=== PATIENT | male | born 1965 | race Caucasian/White ===

== ENCOUNTER 2021-10-19 16:32 | Emergency (ER) | payer SELFPAY ==
[~2021-10-19] VITALS: Ht 177.8 cm; Wt 66.7 kg
[2021-10-19 16:40] VITALS: BP 116/77
[2021-10-19] MEDS ORDERED: LIDOCAINE (700MG/PATCH) PATCH. TD ONE (19:00)
[2021-10-19] MEDS ORDERED: KETOROLAC 60 MG/2 ML VIAL. IM ONE (19:00)
[2021-10-19] MEDS ORDERED: ORPHENADRINE CITRATE 60 MG/2 ML VIAL. IM ONE (19:00)
[2021-10-19] MEDS ORDERED: ORPH100T PO (20:05)
--- NOTE | 2021-10-19 20:07 | PHYS DOC ---
Past Medical History Past Medical History: Sciatica Additional Past Medical Histor: back pain Past Surgical History: No Surgical History Smoking Status: Current Every Day Smoker Alcohol Use: Occasionally General Adult EDM: Chief Complaint: BACK PAIN - NO INJURY HPI: HPI: Patient is a 55 year old male who presents with left-sided low back pain. Patient reports history of sciatica and states that his current episode has lasted approximately 2 weeks. He denies bowel or bladder incontinence, new injury or trauma, saddle anesthesia. Review of Systems: Review of Systems: ROS negative or noncontributory except as mentioned in HPI. Heart Score: C/O Chest Pain: No Current Medications: Current Medications Medications (Trade) Dose Ordered Sig/Ti Start Time Stop Time Status Last Admin Dose Admin Ketorolac Tromethamine (Toradol Im) 60 mg 1X ONCE 10/19/21 19:00 10/19/21 19:01 DC 10/19/21 19:04 60 MG Lidocaine (Lidoderm) 1 patch 1X ONCE 10/19/21 19:00 10/19/21 19:01 DC 10/19/21 19:05 1 PATCH Orphenadrine Citrate (Norflex) 60 mg 1X ONCE 10/19/21 19:00 10/19/21 19:01 DC 10/19/21 19:04 60 MG Allergies: Allergies: Allergies Coded Allergies Type Severity Reaction Last Updated Verified codeine Allergy Intermediate 10/19/21 Yes Physical Exam: PE: Constitutional: Well developed, well nourished, no acute distress, non-toxic appearance. HENT: Normocephalic, atraumatic, bilateral external ears normal, nose normal. Eyes: EOMI, conjunctiva normal, no discharge. Neck: Normal range of motion, no stridor. Skin: Warm, dry, no erythema, no rash. Back: No step-off, left-sided paraspinal muscle spasm with overlying tenderness Extremities: No tenderness, no cyanosis, no clubbing, ROM intact, no edema. Neurologic: Alert and oriented x4, no focal deficits noted, b/l great toe dorsiflexion 5/5 strength, steady gait. Current Patient Data: Vital Signs: Vital Signs Date Time Temp Pulse Resp B/P (MAP) Pulse Ox O2 Delivery O2 Flow Rate FiO2 10/19/21 16:40 98.1 98 20 116/77 (90) 98 98.1 Course & Med Decision Making: Course & Med Decision Making Pertinent Labs and Imaging studies reviewed. (See chart for details) Patient is a 55-year-old male with history of sciatica who presents for acute exacerbation of low back pain. Patient provided with Toradol, Norflex and lidocaine patch. On reevaluation, patient states his pain is much improved. Advised that he can take [id number] NSAIDs as well as using Salonpas (or off brand) in combination with prescribed Norflex. Patient was provided with verbal discharge instruction. He verbalized understanding and agreement. Dragon Disclaimer: Dragon Disclaimer: This electronic medical record was generated, in whole or in part, using a voice recognition dictation system. Departure Departure Impression: Primary Impression: Acute exacerbation of chronic low back pain Disposition: HOME / SELF CARE / HOMELESS Condition: IMPROVED Referrals: JOY BORJAS MD (PCP) Patient Instructions: Sciatica, [id number] Additional Instructions: EMERGENCY DEPARTMENT GENERAL DISCHARGE INSTRUCTIONS Thank you for coming to [facility] Emergency Department (ED) today and trusting us with you care. We trust that you had a positive experience in our Emergency Department. If you wish to speak to the department management, you may call the director at . YOUR FOLLOW UP INSTRUCTIONS ARE FOLLOWS: 1. Follow up with your primary care doctor. If you do not have a primary doctor, please ask for a resource list of physicians or clinics that may be able to assist you with follow up care. 2. The emergency provider has interpreted your imaging studies, if any were ordered. The radiology sight effects specialist also reviewed them. If there is a change in the findings, you will be notified in 48 hours when at all possible. 3. If a lab test or culture has been done, your results will be reviewed and you will be notified if you need a change in treatment. 4. Follow instructions verbalized to you and refer to the printouts if needed. ADDITIONAL INSTRUCTIONS AND INFORMATION: 1. Your care today has been supervised by a physician who is specially trained in emergency care. Many problems require more than one evaluation for a complete diagnosis and treatment. We recommend that you schedule your follow up appointment as recommended to ensure complete treatment of you illness or injury. If you are unable to obtain follow up care and continue to have a problem, or if your condition worsens, we recommend that you return to the ED. 2. We are not able to safely determine your condition over the phone nor are we able to give sound medical advice over the phone. For these safety reasons, if you call for medical advice we will ask you to come to the ED for further evaluation. 3. If you have any questions regarding these discharge instructions please call the ED at . SAFETY INFORMATION: In the interest of safety, wellness, and injury prevention; we encourage you to wear your seat belt, if you smoke; quite smoking, and we encourage family to use a protective helmet for bicycling and other sporting events that present an increased risk for head injury. IF YOUR SYMPTOMS WORSEN OR NEW SYMPTOMS DEVELOP, OR YOU HAVE CONCERNS ABOUT YOUR CONDITION; OR IF YOUR CONDITION WORSENS WHILE YOU ARE WAITING FOR YOUR FOLLOW UP APPOINTMENT; EITHER CONTACT YOUR PRIMARY CARE DOCTOR, THE PHYSICIAN WHOSE NAME AND NUMBER YOU WERE GIVEN, OR RETURN TO THE ED IMMEDIATELY. Scripts Orphenadrine Citrate (ORPHENADRINE CITRATE) 100 Mg Tablet.er 1 TAB PO BID, #13 TAB 1 Refill Prov: ULYSSES PAYAN 10/19/21 ULYSSES PAYAN Oct 19, 2021 20:07
== END 2021-10-19 20:39 | disposition home or self-care (01) ==
LOC: ER 16:32
DX: M54.40 Lumbago with sciatica, unspecified side (principal); G89.29 Other chronic pain; F17.200 Nicotine dependence, unspecified, uncomplicated; Z88.5 Allergy status to narcotic agent
CPT/HCPCS: 96372; 99284; J1885; J2360